=== PATIENT | female | born 1985 | race Caucasian/White ===

== ENCOUNTER 2016-10-28 22:59 | Inpatient (IN) ==
[2016-10-28 23:48] LABS: MANUAL DIFF NEEDED? NO
[2016-10-28 23:48] LABS: URINE SOURCE CLEAN CATCH
[2016-10-28 23:52] LABS: BASO% 0.3 % (0.0-0.8); EOS# 0.13 X1000 (0.0-0.7); HEMATOCRIT 41.7 % (37.0-47.0); IMM GRAN# 0.03 X1000 (0.0-0.04); IMM GRAN% 0.2 % (0.0-0.5); LYMPH# 3.47 X1000 (1.2-3.4); LYMPH% 26.1 % (20.5-51.1); MCH 28.2 PG (27-31); MCHC 33.6 g/dL (33-37); MCV 84.1 FL (81-99); MONO# 1.44 X1000 (0.11-0.59); MONO% 10.9 % (1.7-9.3); MPV 11.3 FL (7.4-10.4); NEUT% 61.5 % (42.2-75.2); PLT 312 X1000 (130-400); RBC 4.96 XMIL (4.2-5.4)
[2016-10-29 00:04] LABS: AGAP 13; ALBUMIN 4.2 g/dL (3.5-5.0); ALKALINE PHOSPHATASE 91 U/L (32-104); AMYLASE 70 U/L (20-200); BUN 11 mg/dL (8-22); CHLORIDE 102 mmol/L (98-107); COSMO 280; GOT 35 U/L (10-30); GPT 70 U/L (10-36); LIPASE 45 U/L (13-60); POTASSIUM 3.9 mmol/L (3.5-5.1); SODIUM 140 mmol/L (136-145); TCO2 25 mmol/L (25-35); TOTAL BILIRUBIN 0.44 mg/dL (0.20-1.00); TOTAL PROTEIN 7.7 g/dL (6.3-8.3)
[2016-10-29 00:29] LABS: BILIRUBIN URINE NEGATIVE (NEGATIVE); BLOOD URINE MODERATE (NEGATIVE); COLOR YELLOW; GLUCOSE URINE NEGATIVE (NEGATIVE); LEUKOCYTES URINE LARGE (NEGATIVE); NITRITE URINE NEGATIVE (NEGATIVE); PH URINE 5.5; PROTEIN URINE 50 mg/dL (NEGATIVE); SP GRAVITY URINE 1.031; TURBIDITY URINE HAZY (CLEAR); URINE MICRO REVIEW NEEDED? YES; UROBILINOGEN URINE NORMAL (NORMAL)
[2016-10-29] MEDS ORDERED: NS 1,000 ML IV ONE ×2 (00:29→03:44)
[2016-10-29] MEDS ORDERED: ZOFRAN IV ONE ×2 (00:29→01:53)
[2016-10-29 00:30] LABS: UR EPITHELIAL CELLS >10 /HPF (<10); URINE BACTERIA 3+ /HPF; URINE CULTURE NEEDED? YES; URINE RBC <10 /HPF (<10); URINE WBC TNTC /HPF (<10)
[2016-10-29] MEDS ORDERED: TORADOL IV ONE (00:44)
[2016-10-29] MEDS ORDERED: MORPHINE IV ONE (00:44)
[2016-10-29] MEDS ORDERED: ROCEPHIN 1 GM/NS 1 GM/50 ML IVPB IV ONE (00:45)
[2016-10-29 01:12] LABS: URINE CASTS NONE SEEN; URINE CRYSTALS NONE SEEN; URINE SMALL ROUND CELLS NONE SEEN
--- NOTE | 2016-10-29 02:18 | PROVIDER DOCUMENTATION ---
This chart was entered by Mara Stanley Scribe, acting as scribe for Gaurav Murguia MD. HPI-General Adult - General Chief Complaint: N/V/D Stated Complaint: GALLBLADDER X Time Seen by Provider: 10/29/16 00:16 Source: patient Allergies/Adverse Reactions: Patient Allergies Allergy/AdvReac Type Severity Reaction Status Date / Time codeine Allergy SWELLING Verified 10/29/16 00:43 Home Medications: Home Medication List Medication Instructions Recorded Confirmed Last Taken Type Ondansetron HCl [Zofran] 4 mg PO PRN PRN 10/29/16 10/29/16 10/28/16 20:00 History - History of Present Illness -Gen Adult Nature of Presenting Problems: 31 Y/O F presents to ED with N/V/D. Pt states 5 day onset of no appetite unable to keep anything down. Pt states N/V/D with ABD discomfort, states seen some dark blood in her stool. Location of Pain/Injury: reports: abdomen Pain Radiation: reports: no radiation Quality of Pain: reports: aching Severity: reports: moderate Onset/Duration: reports: 5 days ago Timing: reports: still present Associated Symptoms: reports: diarrhea, loss of appetite, nausea, vomiting. denies: fatigue, fever/chills Review of Systems - Adult - REVIEW OF SYSTEMS - ADULT Constitutional: denies: chills, fever Eyes: reports: no symptoms reported Ears, Nose, Mouth & Throat: reports: no symptoms reported Cardiovascular: reports: no symptoms reported Respiratory: reports: no symptoms reported Gastrointestinal: reports: abdominal pain, diarrhea, nausea, vomiting Genitourinary: reports: no symptoms reported Musculoskeletal: reports: no symptoms reported Integumentary: reports: no symptoms reported Neurological: reports: no symptoms reported Psychiatric: reports: no symptoms reported Endocrine: reports: no symptoms reported Hematologic/Lymphatic: reports: no symptoms reported Allergic/Immunologic: reports: no symptoms reported All Other Systems: Reviewed and Negative Past History - Adult - PAST MEDICAL HISTORY-ADULT Review of Records: reports: Old Records Reviewed, Nursing Assessment Review, Medications Reviewed, Social history reviewed & non-contributory. Physical Exam-General - CONSTITUTIONAL General Appearance: alert, mild distress - EYES Eyes: pink conjunctivae - HEAD, EARS, NOSE, MOUTH & THROAT HENMT: normal ENT inspection, TMs normal, pharynx normal - NECK Neck: full range of motion, supple, normal inspection - RESPIRATORY Respiratory: lungs clear, normal breath sounds - CARDIOVASCULAR Cardiovascular: regular rate, rhythm - GASTROINTESTINAL (ABDOMEN) Abdominal Exam: tenderness (RUQ,RLQ,LUQ, mid epi) - MUSCULOSKELETAL Extremity: non-tender - SKIN Integumentary: normal color, normal turgor, warm/dry - NEUROLOGIC Neurologic: grossly normal - PSYCHIATRIC Psych/Mental Status: normal mood/affect, normal thought content, normal thought process, oriented x 3 Progress - PLAN OF CARE/RESULTS Progress/Plan/Lab Results: Vital Signs - 8 hr 10/28/16 23:14 Temperature 98 F Pulse Rate 78 Respiratory Rate 18 Blood Pressure 141/83 O2 Sat by Pulse Oximetry 99 Bedside Urine ED: Urine Bedside Start: 10/28/16 23:17 Freq: ORDERED Status: Active Activity Type Activity Date Activity User E-Sign Co-Sign Detail Recorded Client Recorded Date Recorded By Document 10/28/16 23:29 [id number] 10/28/16 23:30 [id number] 10/28/16 23:29 Point of Care [Bedside Point of Care] -Lot # [id number] - Results Negative -Control Line Visible? Yes Laboratory Results - last 24 hr 10/28/16 10/28/16 10/28/16 23:30 23:36 23:36 WBC 13.27 H RBC 4.96 Hgb 14.0 Hct 41.7 MCV 84.1 MCH 28.2 MCHC 33.6 RDW Std Deviation 13.6 Plt Count 312 MPV 11.3 H Immature Gran % (Auto) 0.2 Neut % (Auto) 61.5 Lymph % (Auto) 26.1 Wayne % (Auto) 10.9 H Eos % (Auto) 1.0 Baso % (Auto) 0.3 Immature Gran # (Auto) 0.03 Neut # (Auto) 8.16 H Lymph # (Auto) 3.47 H Wayne # (Auto) 1.44 H Eos # (Auto) 0.13 Baso # (Auto) 0.04 Sodium 140 Potassium 3.9 Chloride 102 Carbon Dioxide 25 Anion Gap 13 BUN 11 Creatinine 0.9 Estimated GFR/1.73 m2 > 60 BUN/Creatinine Ratio 12 Glucose 123 H Calculated Osmolality 280 Calcium 9.0 Total Bilirubin 0.44 AST 35 H ALT 70 H Alkaline Phosphatase 91 Total Protein 7.7 Albumin 4.2 Globulin 3.5 Albumin/Globulin Ratio 1.2 Amylase 70 Lipase 45 Urine Source CLEAN CATCH Urine Color YELLOW Urine Turbidity HAZY Urine pH 5.5 Ur Specific [place] 1.031 Urine Protein 50 A Ur Glucose (Stick) NEGATIVE Ur Ketones (Stick) NEGATIVE Urine Blood MODERATE A Urine Nitrite NEGATIVE Urine Bilirubin NEGATIVE Urobilinogen Dipstick NORMAL Urine Leukocytes LARGE A Orders Category Date Time Status ED: Urine Bedside ORDERED Care 10/28/16 23:17 Active NPO Diet 10/28/16 23:17 Active AMYLASE [CHEM] Stat Lab 10/28/16 23:36 Completed CBC WITH ELECTRONIC DIFF [HEME] Stat Lab 10/28/16 23:36 Completed COMPREHENSIVE METABOLIC PANEL [CHEM] Stat Lab 10/28/16 23:36 Completed LIPASE [CHEM] Stat Lab 10/28/16 23:36 Completed URINALYSIS W/POSS RFLX CULT-1 [URINALYSIS] Stat Lab 10/28/16 23:30 Results 0.9% Sodium Chloride Inj [Ns] 1,000 ml Med 10/29/16 00:29 Active IV 999 mls/hr Ondansetron [Zofran] Med 10/29/16 00:29 Once 4 mg IV NOW ONE Result Diagrams: 10/28/16 23:36 10/28/16 23:36 - CT/MRI 1 CT Study: Abdomen, Pelvis Impression: Normal (vague indetermine rightrenal hypodensities. these could represents cysts. 2. small umbilcal hernia contains fat) CT Results: see notes Departure - Departure Date of Disposition Decision: 10/29/16 Time of Disposition Decision: :17 DIAGNOSIS: RUQ abdominal pain UTI (urinary tract infection) Qualifiers: Urinary tract infection type: site unspecified Hematuria presence: without hematuria Qualified Code(s): N39.0 - Urinary tract infection, site not specified Disposition: ADMITTED INPATIENT 09 Certified Medical Emergency: Emergent Condition: Good Referrals and Follow-Ups: None,PCP [Primary Care Provider] - - Critical Care Note This patient required my direct & personal management of CC.: No Attestation - Physician/ DAPHNEY Attestation Patient care was provided by Advanced Practice Provider:: No The physician spent face to face time with patient:: Yes Advanced Practice Provider documentation review:: Supervising physician onsite and consulted in the evaluation and care of this patient. The physician did have a face to face encounter with the patient. This chart was documented by the indicated scribe, (Mara Stanley Scribe) and accurately reflects the services I performed and decisions made by me, Gaurav Murguia MD, as attested by the provider's signature.
[2016-10-29] MEDS ORDERED: MORPHINE IV PRN (03:44)
[2016-10-29] MEDS ORDERED: TYLENOL PO PRN (04:24)
[2016-10-29] MEDS: SODIUM CHLORIDE 0.9% INJ SCH (04:47)
[2016-10-29] MEDS: PROTONIX IV SCH (04:48)
--- NOTE | 2016-10-29 06:42 | HISTORY AND PHYSICAL ---
CHIEF COMPLAINT: Right upper quadrant pain, nausea and vomiting. HISTORY OF PRESENT ILLNESS: Ms. Avelar is a 31-year-old female who states that approximately 11 days ago she began having nausea, vomiting and diarrhea and right upper quadrant pain after eating. She states that since this time this occurs every time she eats, though over the past few days that her symptoms as well as her right upper quadrant pain has worsened. She describes the pain in her abdomen as intermittent and only hurts after she eats. She states it is a hard sharp pain. She denies any fever, body aches, or chills. She denies any emesis, hematochezia or melena. She also denies any dysuria or urinary frequency. She states that she has not had any previous episodes similar to this. She presented [facility] and upon evaluation was found to have a slight leukocytosis with a white blood cell count of 13.27, as well as her AST and ALT were slightly elevated as well. She also did have a moderate amount of blood, large leukocytes and too numerous to count white blood cells and 3+ bacteria noted in her urine. A CT abdomen and pelvis with contrast was performed which did show vague and indeterminate right renal hypodensities which could represent cysts. Also noted was a small umbilical hernia that contained fat. All other abdominal solid organs are otherwise unremarkable. Given the patient's symptoms, as well as her right upper quadrant pain which worsens with eating, as well as a positive Morales's sign upon examination , we did decide to admit the patient for further treatment evaluation. REVIEW OF SYSTEMS: A 12 point review of systems was conducted and all were negative except for pertinent positives mentioned above in HPI. PAST MEDICAL HISTORY: The patient denies any previous medical problems. PAST SURGICAL HISTORY: Tubal ligation. SOCIAL HISTORY: The patient denies any past or present tobacco, alcohol, or illicit drug use. FAMILY HISTORY: Positive for gallbladder disease, diabetes mellitus, breast cancer, as well as hypertension. ALLERGIES: Patient reports allergies to codeine. HOME MEDICATIONS: Zofran 4 mg p.o. p.r.n. as needed for nausea and vomiting. PHYSICAL EXAMINATION: VITAL SIGNS: Temperature 98 degrees, heart rate 78, respirations 18, blood pressure 141/83, oxygen saturation is 99% room air. GENERAL: Ms. Avelar is a very pleasant 31-year-old, female who was resting comfortably in the ER stretcher. She is in no acute distress. She was awake, alert and able to answer all questions appropriately. HEENT: Head is atraumatic, normocephalic. Pupils are equal, round, reactive to light, were 3 mm bilaterally and brisk. Oral mucosa was moist. Oropharynx was clear. NECK: Supple. Trachea midline. No carotid bruits noted upon auscultation bilaterally. CARDIOVASCULAR: Patient has normal S1, S2. No murmurs, gallops, or rubs appreciated with a regular rate and rhythm. PULMONARY: Patient has symmetrical chest expansion bilaterally. Lung sounds were clear to auscultation in bilateral full rodriguez. ABDOMEN: Soft, nondistended, though she did report tenderness upon palpation in the epigastric area as well as right upper quadrant and around to her right flank area. On examination, she did have a positive Morales's sign. Bowel sounds were present in all 4 quadrants, were normoactive. EXTREMITIES: No cyanosis, clubbing, or edema noted. Pulse, motor and sensory were intact in all extremities. Pedal pulses were 3+ bilaterally. INTEGUMENTARY: Skin is pink, warm, dry, and intact. No lesions or sores noted. NEUROLOGICAL: Patient is alert and oriented x3. Cranial nerves 2-12 are grossly intact. ASSESSMENT AND PLAN: 1. Right upper quadrant and epigastric pain. Differentials for this include gastroenteritis and gallbladder disease. We have placed an order for a gallbladder ultrasound in the morning and will await those results and continue to follow. 2. Nausea and vomiting. We will give her Zofran 4 mg IV every 4-6 hours as needed. 3. Diarrhea. Given that she has had this for approximately 11 days now, we will order stool studies as well to rule out any other infectious process. 4. Fluid volume depletion. This is likely secondary to her nausea, vomiting and diarrhea. We will continue with gentle fluid resuscitation with normal saline at 100 mL/ h. She did receive a 1 L normal saline bolus in the ER. 5. Urinary tract infection. We will treat this with 1 g Rocephin IV every 24 hours and await urine culture results. 6. Deep vein thrombosis prophylaxis. We will place SCDs. 7. She will be placed on the surgical floor with telemetry. She will have vital signs every 6 hours. We will do strict intake and output. She will be NPO until we have the results of her gallbladder ultrasound. We will repeat a CBC and CMP in the morning. Further orders and recommendations pending hospital course, diagnostic studies, and physician evaluation. Dictated by JARAD Coates for Ronn Riggs MD cc: Ronn Riggs MD MTDD
[2016-10-29 06:57] LABS: MANUAL DIFF NEEDED? NO
[2016-10-29 07:03] LABS: BASO% 0.4 % (0.0-0.8); EOS# 0.13 X1000 (0.0-0.7); EOS% 1.3 % (0.0-10.0); HEMATOCRIT 40.1 % (37.0-47.0); LYMPH# 3.08 X1000 (1.2-3.4); LYMPH% 30.9 % (20.5-51.1); MCHC 32.4 g/dL (33-37); MCV 86.2 FL (81-99); MONO# 1.26 X1000 (0.11-0.59); MONO% 12.6 % (1.7-9.3); MPV 11.1 FL (7.4-10.4); NEUT% 54.8 % (42.2-75.2); PLT 266 X1000 (130-400); RBC 4.65 XMIL (4.2-5.4)
[2016-10-29 07:23] LABS: AGAP 12; ALBUMIN 3.7 g/dL (3.5-5.0); ALKALINE PHOSPHATASE 80 U/L (32-104); BUN 11 mg/dL (8-22); CALCIUM 8.5 mg/dL (8.8-10.2); CHLORIDE 105 mmol/L (98-107); COSMO 282; GOT 27 U/L (10-30); GPT 57 U/L (10-36); POTASSIUM 4.3 mmol/L (3.5-5.1); SODIUM 141 mmol/L (136-145); TCO2 24 mmol/L (25-35); TOTAL PROTEIN 6.7 g/dL (6.3-8.3)
[2016-10-29] MEDS ORDERED: ZOFRAN IV PRN (07:30)
--- NOTE | 2016-10-29 08:04 | Diag Imaging Result Doc PS360 ---
EXAM: CT ABD/PELVIS W/ IV CONT ONLY INDICATION: ruq pain, increased LFTs TECHNIQUE: Dose reduction protocol was used. Note that this study was ordered with IV contrast. However, there is a contrast leak during administration and there is very poor enhancement making it essentially an unenhanced study. COMPARISON: None. FINDINGS: The liver, gallbladder, spleen, adrenal glands, and pancreas are unremarkable. There is a nonspecific small hypodensity at the upper pole of the right kidney with cortical irregularity. This may represent mild scarring. Consider evaluation with renal ultrasound. There are no renal or ureteral stones appreciated. There is no hydronephrosis. The appendix is normal. The urinary bladder is unremarkable. The reproductive tract and GI tract are grossly unremarkable. No focal inflammatory changes, free abdominal gas, or free fluid is appreciated. There is a tiny umbilical hernia that contains only fat. IMPRESSION: 1.Mild cortical irregularity involving the right kidney with regions of low attenuation that probably represents mild cortical scarring or perhaps persistent lobulations. Consider follow-up with renal ultrasound. 2.Other incidental/nonacute findings detailed above. Electronically signed by Anderson Portillo 10/29/2016 8:02 AM
--- NOTE | 2016-10-29 08:27 | Diag Imaging Result Doc PS360 ---
EXAM: US GB < RUQ (LIMITED) HISTORY: RUQ Pain, N/V TECHNIQUE: COMPARISON: None. FINDINGS: Portions of the pancreas are obscured. The head and proximal body are normal. Normal right kidney. No hydronephrosis. No ascites in the right upper quadrant. Normal gallbladder. No stones. The gallbladder wall is not thickened. The common bile duct measures 3 mm. No focal hepatic abnormality. Normal inferior vena cava. No aneurysmal dilatation to the aorta. IMPRESSION: Normal right upper quadrant ultrasound. Electronically signed by Nick Dia 10/29/2016 8:25 AM
[2016-10-29] MEDS ORDERED: DULCOLAX PR PRN (09:05)
[2016-10-29] MEDS ORDERED: MILK OF MAGNESIA PO ONE (09:05)
--- NOTE | 2016-10-29 09:26 | PROGRESS NOTE ---
DATE: 10/29/2016 SUBJECTIVE: This is a 31-year-old who presented this morning. She reports right-sided pain, right upper quadrant. This has been going on for a couple of days. Presented to the emergency room. Abdominal ultrasound showed normal right upper quadrant ultrasound. Portions of the pancreas observed. The head and proximal body are normal. Normal right kidney. No hydronephrosis. No ascites in the right upper quadrant. Normal gallbladder. No stones. Gallbladder wall was not thickened. Common bile duct measured 3 mm. No focal hepatic abnormality. Normal inferior vena cava. No aneurysmal dilatation. She does feel like she is constipated so we will try something to help her have relief. PHYSICAL EXAMINATION: Vital Signs: Temperature 97.9 degrees, pulse 60, respirations 20, blood pressure 130/79. CVP less than 6 cm. Lungs: Clear in all lung rodriguez. Cardiovascular Examination: Regular rate without murmur or S3. Abdomen: Soft. She had some discomfort with palpation but positive bowel sounds. Most of this discomfort was in the right upper quadrant. Extremities: No pedal edema. REVIEW OF LABS: White count 9970, hematocrit 40, platelet count 266,000. Sodium 141, potassium 4.3, chloride 105, bicarb 24, BUN 11, creatinine 0.9. Liver functions, transaminases, ALT slightly elevated at 57. Albumin was 3.7. Urinalysis showed 3+ bacteria, white blood cells too numerous to count. Abdominal and pelvic CT, mild cortical irregularity involving the right kidney and regions of lower attenuation, probably represents mild cortical scarring and perhaps persistent lobulation. ASSESSMENT/PLAN: 1. We are going to treat her for pyelonephritis. She also appears to have some constipation. She is on ceftriaxone which they are going to give 1 g every 24 hours. 2. I am going to try some milk of magnesia and Dulcolax suppository to see if that will help with her bowels. She is getting fluid now at 100 mL an hour which I think is appropriate. We have Zofran for nausea. She is on Protonix 40 mg intravenous every 24 hours. cc: Mekhi Enamorado MD
[2016-10-30] MEDS ORDERED: ROCEPHIN 1 GM/NS 1 GM/50 ML IVPB IV SCH (03:00)
[2016-10-30] MEDS: PROTONIX IV SCH (03:50)
[2016-10-30] MEDS: SODIUM CHLORIDE 0.9% INJ SCH (03:51)
[2016-10-30 14:06] VITALS: BP 135/77
--- NOTE | 2016-10-30 19:48 | DISCHARGE SUMMARY ---
ADMISSION DATE: 10/29/2016 DISCHARGE DATE: 10/30/2016 CHIEF COMPLAINT: She came in with right upper quadrant pain, nausea and vomiting. HISTORY OF PRESENT ILLNESS: This 31-year-old states that approximately 11 days ago she had nausea, vomiting, diarrhea and right upper quadrant pain after eating. Since that time it occurs every time she eats. Over the past few days symptoms in her right upper quadrant worsened. She described pain her abdomen intermittently. It hurts after she eats. She states it is a hard- sharp pain. She denies any fever, aches or chills. She denied any emesis, hematochezia, melena. She denied any dysuria or urinary frequency. She presented to the emergency room and on evaluation was found to have slight leukocytosis with white blood cell count 13,270. As well, AST and ALT were slight slightly elevated. She did have a moderate amount of blood, large leukocytes and too numerous to count blood cells. 3+ bacteremia noted in the urine. CT of the abdomen and pelvis with contrast was performed which did show vague indeterminate right renal hypodensities which could represent a cyst. Noted was a small umbilical hernia that contains some fat. All other abdominal solid organs are otherwise unremarkable. HOSPITAL COURSE: She was admitted with right upper quadrant. It was felt like she might have some pyelonephritis. I also wanted to make sure no biliary colic. Nausea and vomiting resolved with some fluids. Diarrhea resolved and we were able to advance her to a regular diet. She felt she had a urinary tract infection. I suspect she had pyelonephritis. She was given 1 g Rocephin q.24 hours and clinically improved. Her lab urine showed mixed eulalia. Abdominal ultrasound with normal right upper quadrant ultrasound. CT of the abdomen and pelvis showed mild cortical irregularity involving the right kidney with regions of low attenuation that is probably presenting as mild cortical scarring perhaps persistent lobulations. she felt better. She was requesting to go home. I will probably leave her on Levaquin for another 7 days 500 mg daily. Her home medications were very scant. I think she took Zofran as needed. She did have some constipation and so plan to let her continue using Metamucil and some things at home, fiber and prunes. I want her to follow up with a primary care doctor. She does not have one. We will see if we can set her up to see Ifrah Lees, Nurse Practitioner in a couple of weeks. cc: Mekhi Enamorado MD
== END 2016-10-30 14:46 | disposition home or self-care (01) ==
LOC: ED 22:59 → SUATTDRO 10-29 04:18 → 4N 10-29 04:18
PROVIDERS: ATTEND Emergency Medicine